=== PATIENT | female | born 1985 | race African-American/Black ===

== ENCOUNTER 2017-12-10 13:50 | Observation (INO) | payer MEDICAID ==
[~2017-12-10] VITALS: Ht 170.2 cm; Wt 129.3 kg
[~2017-12-10 13:50] MED LIST: ALBU2.5V13; ARIP15TA2; EMTR1TAB11; NORV1
[2017-12-10] MEDS ORDERED: TERBUTALINE SULFATE 1MG/ML VIAL SUBCUT PRN (14:30)
[2017-12-10] MEDS ORDERED: LACTATED RINGERS 1,000 ML IV SCH (14:30)
[2017-12-10] MEDS ORDERED: ACETAMINOPHEN 500MG TABLET PO NR (14:44)
[2017-12-10 15:14] LABS: CLARITY URINE CLEAR (CLEAR); COLOR URINE YELLOW (YELLOW); KETONES URINE NEGATIVE (NEGATIVE); LEUKOCYTE ESTERASE URINE NEGATIVE (NEGATIVE); NITRITE URINE NEGATIVE (NEGATIVE); OCCULT BLOOD URINE NEGATIVE (NEGATIVE); PROTEIN URINE NEGATIVE (NEGATIVE); SPECIFIC GRAVITY URINE 1.024 (1.005-1.030)
[2017-12-10] MEDS ORDERED: GABA-531 PO (15:15)
[2017-12-10] MEDS ORDERED: ACET-2178 PO (15:15)
[2017-12-10] MEDS ORDERED: RALT400T PO (15:15)
[2017-12-10] MEDS ORDERED: PNV1TABL76 MT (15:15)
== END 2017-12-10 16:00 | disposition home or self-care (01) ==
LOC: L&D 13:50
PROVIDERS: ADMIT Obstetrics & Gynecology; ATTEND Obstetrics & Gynecology
DX: O26.899 Other specified pregnancy related conditions, unspecified trimester (principal); R10.9 Unspecified abdominal pain; Z3A.00 Weeks of gestation of pregnancy not specified
CPT/HCPCS: 81003; 96360; 99281; G0378; J7120; 96361

== ENCOUNTER 2020-06-17 20:20 | Inpatient (IN) | payer MEDICAID ==
[~2020-06-17] VITALS: Ht 172.7 cm; Wt 84.2 kg
[~2020-06-17 20:20] MED LIST changes: -ARIP15TA2; +GABA-531 PO; -NORV1; +PNV1TABL76 MT; +RALT400T PO; +TOPUD PO
[2020-06-17] MEDS ORDERED: SODIUM CHLORIDE 0.9% 1,000 ML IV ONE (22:14)
[2020-06-17] MEDS ORDERED: LEVETIRACETAM 500MG PREMIX 100 ML IV ONE (22:15)
[2020-06-17 23:53] LABS: CLARITY URINE CLEAR (CLEAR); COLOR URINE YELLOW (YELLOW); KETONES URINE NEGATIVE (NEGATIVE); LEUKOCYTE ESTERASE URINE 1+ (NEGATIVE); NITRITE URINE NEGATIVE (NEGATIVE); OCCULT BLOOD URINE 3+ (NEGATIVE); PH URINE 6.5 (4.5-8.0); PROTEIN URINE TRACE (NEGATIVE); SPECIFIC GRAVITY URINE 1.026 (1.005-1.030)
[2020-06-18 00:07] LABS: *COCAINE SCREEN URINE NEGATIVE (NEGATIVE)
[2020-06-18 00:09] LABS: *BARBITURATES SCREEN URINE NEGATIVE (NEGATIVE); *BENZODIAZEPINES SCREEN URINE NEGATIVE (NEGATIVE); CANNABINOID URINE SCREEN NEGATIVE (NEGATIVE); METHADONE URINE SCREEN NEGATIVE (NEGATIVE); OPIATES URINE SCREEN NEGATIVE (NEGATIVE)
[2020-06-18 00:11] LABS: *AMPHETAMINES SCREEN URINE PRESUMTIVE POSITIVE (NEGATIVE); PHENCYCLIDINE URINE SCREEN PRESUMTIVE POSITIVE (NEGATIVE)
[2020-06-18 00:27] LABS: BASOPHILS % 0.8 % (0.0-2.0); EOSINOPHILS % 1.6 % (0.0-5.0); HEMATOCRIT. 37.7 % (36.0-48.0); HEMOGLOBIN. 12.9 g/dL (12.0-16.0); LYMPHOCYTES % 20.8 % (20.0-50.0); MEAN CORPUSCULAR HEMOGLOBIN 30.4 pg (28.0-32.0); MEAN CORPUSCULAR VOLUME 88.9 fL (81.0-99.0); MEAN PLATELET VOLUME 8.1 fl (7.4-10.4); NEUTROPHILS % 66.8 % (40.0-76.0); PLATELET 246 x1000/uL (130-400); RED BLOOD CELL COUNT 4.23 mill/uL (4.2-5.4); RED CELL DISTRIBUTION WIDTH 13.2 % (11.6-14.6)
[2020-06-18 00:33] LABS: CHLORIDE 107 mEq/L (98-107)
[2020-06-18 00:35] LABS: HCG SCREEN NEGATIVE
[2020-06-18 00:38] LABS: ETHANOL BLOOD < 10 mg/dL
[2020-06-18 00:49] LABS: PHENOBARBITAL < 2.1 ug/mL (15.0-40.0); VALPROIC ACID < 3.0 ug/mL (50-100)
[2020-06-18] MEDS ORDERED: LORAZEPAM 2MG/ML CPJ IV ONE (07:30)
[2020-06-18] MEDS ORDERED: OLANZAPINE 10 MG/VIAL IM ONE (07:30)
[2020-06-18 11:07] VITALS: BP 135/91
[2020-06-18 11:24] VITALS: BP 135/91
[2020-06-18] MEDS ORDERED: HALOPERIDOL LACTATE 5MG/ML VIAL IM PRN (12:30)
[2020-06-18] MEDS ORDERED: ACETAMINOPHEN 325MG TABLET PO PRN (12:30)
[2020-06-18] MEDS ORDERED: HYDRALAZINE 20MG/ML VIAL IV PRN (12:30)
[2020-06-18] MEDS ORDERED: ONDANSETRON HCL 4MG/2ML INJ IV PRN (12:30)
[2020-06-18] MEDS ORDERED: LORAZEPAM 2MG/ML CPJ IV PRN (12:30)
[2020-06-18] MEDS: LEVETIRACETAM 500MG PREMIX 100 ML IV SCH ×2 (13:20→23:33)
[2020-06-18] MEDS: DEXT 5%/0.45% NACL 1000ML 1,000 ML IV SCH ×2 (13:20→23:33)
[2020-06-18 16:00] VITALS: BP 100/55
[2020-06-18 16:05] LABS: BASOPHILS % 0.6 % (0.0-2.0); EOSINOPHILS % 1.2 % (0.0-5.0); HEMATOCRIT. 39.8 % (36.0-48.0); HEMOGLOBIN. 13.5 g/dL (12.0-16.0); LYMPHOCYTES % 15.3 % (20.0-50.0); MEAN CORPUSCULAR HEMOGLOBIN 30.1 pg (28.0-32.0); MEAN CORPUSCULAR VOLUME 89.2 fL (81.0-99.0); MEAN PLATELET VOLUME 8.4 fl (7.4-10.4); MONOCYTES % 7.3 % (2.0-8.0); NEUTROPHILS % 75.6 % (40.0-76.0); PLATELET 239 x1000/uL (130-400); RED BLOOD CELL COUNT 4.47 mill/uL (4.2-5.4); RED CELL DISTRIBUTION WIDTH 13.2 % (11.6-14.6)
[2020-06-18 16:11] LABS: CHLORIDE 108 mEq/L (98-107)
[2020-06-18 16:20] LABS: CREATINE KINASE 866 IU/L (26-192)
[2020-06-18 20:07] VITALS: BP 106/64
[2020-06-18] MEDS: HEPARIN 5000 UNITS/ML VIAL SUBCUT SCH (21:46)
[2020-06-18 23:58] VITALS: BP 118/75
[2020-06-19 04:45] VITALS: BP 112/62
[2020-06-19 06:12] LABS: CHLORIDE 109 mEq/L (98-107)
[2020-06-19 06:21] LABS: BASOPHILS % 0.7 % (0.0-2.0); EOSINOPHILS % 1.7 % (0.0-5.0); HEMOGLOBIN. 13.3 g/dL (12.0-16.0); MEAN CORPUSCULAR HEMOGLOBIN 30.2 pg (28.0-32.0); MEAN CORPUSCULAR VOLUME 88.5 fL (81.0-99.0); MEAN PLATELET VOLUME 8.5 fl (7.4-10.4); MONOCYTES % 11.1 % (2.0-8.0); NEUTROPHILS % 60.5 % (40.0-76.0); PLATELET 251 x1000/uL (130-400); RED CELL DISTRIBUTION WIDTH 13.1 % (11.6-14.6)
[2020-06-19 08:00] VITALS: BP 128/90
[2020-06-19] MEDS: HEPARIN 5000 UNITS/ML VIAL SUBCUT SCH ×2 (08:09→21:01)
[2020-06-19] MEDS: OLANZAPINE 5MG TABLET PO SCH (08:09)
[2020-06-19] MEDS: ASPIRIN 81MG EC TABLET PO SCH (08:09)
[2020-06-19] MEDS ORDERED: ASPIRIN 81MG EC TABLET PO SCH (09:00)
[2020-06-19] MEDS ORDERED: POTASSIUM CHLORIDE 20MEQ/PACKET PO NR ×2 (11:30→12:45)
[2020-06-19] MEDS: LEVETIRACETAM 500MG PREMIX 100 ML IV SCH (11:57)
[2020-06-19 12:00] VITALS: BP 122/80
[2020-06-19 13:06] LABS: CREATINE KINASE 637 IU/L (26-192)
[2020-06-19] MEDS ORDERED: MAGNESIUM 2 G PREMIX 50 ML IV NR (14:00)
[2020-06-19] MEDS: DEXT 5%/0.45% NACL 1000ML 1,000 ML IV SCH (14:10)
[2020-06-19 16:00] VITALS: BP 107/76
[2020-06-19 20:47] VITALS: BP 116/70
[2020-06-20] MEDS: LEVETIRACETAM 500MG PREMIX 100 ML IV SCH ×2 (00:34→13:25)
[2020-06-20 00:41] VITALS: BP 101/62
[2020-06-20] MEDS: DEXT 5%/0.45% NACL 1000ML 1,000 ML IV SCH ×2 (03:30→15:46)
[2020-06-20 04:00] VITALS: BP 108/77
[2020-06-20 08:00] VITALS: BP 97/57
[2020-06-20] MEDS: HEPARIN 5000 UNITS/ML VIAL SUBCUT SCH ×2 (08:36→21:18)
[2020-06-20] MEDS: ASPIRIN 81MG EC TABLET PO SCH (08:36)
[2020-06-20] MEDS: OLANZAPINE 5MG TABLET PO SCH (08:36)
[2020-06-20 10:06] LABS: % CD 3 POS. LYMPHOCYTES 86.6 % (57.5-86.2); % CD 4 POS. LYMPHOCYTES 59.3 % (30.8-58.5); ABSOLUTE CD 3 779 /uL (622-2402); ABSOLUTE CD 4 HELPER 534 /uL (359-1519); ABSOLUTE CD 8 SUPPRESSOR 279 /uL (109-897); ABSOLUTE EOSINOPHILS 0.1 x10E3/uL (0.0-0.4); ABSOLUTE LYMPHOCYTES 0.9 x10E3/uL (0.7-3.1); ABSOLUTE MONOCYTES 0.5 x10E3/uL (0.1-0.9); ABSOLUTE NEUTROPHILS 2.2 x10E3/uL (1.4-7.0); BASOPHILS 0 % (Not Estab.); CD4/CD8 RATIO 1.91 (0.92-3.72); HEMATOCRIT 39.3 % (34.0-46.6); HEMOGLOBIN 12.9 g/dL (11.1-15.9); IMMATURE GRANULOCYTES 0 % (Not Estab.); LYMPHOCYTES 25 % (Not Estab.); MEAN CORPUSCULAR HEMOGLOBIN 29.3 pg (26.6-33.0); MEAN CORPUSCULAR HGB CONC. 32.8 g/dL (31.5-35.7); MEAN CORPUSCULAR VOLUME 89 fL (79-97); MONOCYTES 12 % (Not Estab.); NEUTROPHILS 62 % (Not Estab.); PLATELETS 280 x10E3/uL (150-450); RBC 4.41 x10E6/uL (3.77-5.28); RED CELL DISTRIBUTION WIDTH 12.3 % (11.7-15.4); WBC 3.6 x10E3/uL (3.4-10.8)
[2020-06-20 12:34] VITALS: BP 104/68
[2020-06-20 12:47] LABS: BASOPHILS % 1.2 % (0.0-2.0); EOSINOPHILS % 2.5 % (0.0-5.0); HEMATOCRIT. 39.1 % (36.0-48.0); HEMOGLOBIN. 13.3 g/dL (12.0-16.0); LYMPHOCYTES % 28.9 % (20.0-50.0); MEAN CORPUSCULAR VOLUME 88.3 fL (81.0-99.0); MEAN PLATELET VOLUME 8.6 fl (7.4-10.4); MONOCYTES % 10.6 % (2.0-8.0); NEUTROPHILS % 56.8 % (40.0-76.0); PLATELET 273 x1000/uL (130-400); RED BLOOD CELL COUNT 4.43 mill/uL (4.2-5.4); RED CELL DISTRIBUTION WIDTH 12.9 % (11.6-14.6)
[2020-06-20 12:50] LABS: CHLORIDE 107 mEq/L (98-107)
[2020-06-20] MEDS ORDERED: KEPP500 MT (13:57)
[2020-06-20] MEDS ORDERED: OLAN5TAB26 PO (13:57)
[2020-06-20] MEDS ORDERED: PENICILLIN G BENZATHINE 2,400,000 UNITS/4ML SYR IM NR (16:00)
[2020-06-20 16:32] VITALS: BP 105/56
[2020-06-20 20:28] VITALS: BP 106/65
[2020-06-21] VITALS: BP 107/64
[2020-06-21] MEDS: LEVETIRACETAM 500MG PREMIX 100 ML IV SCH ×2 (00:31→14:04)
[2020-06-21 04:00] VITALS: BP 100/50
[2020-06-21 08:23] VITALS: BP 103/63
[2020-06-21 08:37] LABS: BASOPHILS % 0.7 % (0.0-2.0); HEMATOCRIT. 37.3 % (36.0-48.0); HEMOGLOBIN. 12.8 g/dL (12.0-16.0); LYMPHOCYTES % 29.3 % (20.0-50.0); MEAN CORPUSCULAR HEMOGLOBIN 30.4 pg (28.0-32.0); MEAN CORPUSCULAR VOLUME 88.7 fL (81.0-99.0); MEAN PLATELET VOLUME 8.6 fl (7.4-10.4); MONOCYTES % 13.6 % (2.0-8.0); NEUTROPHILS % 54.4 % (40.0-76.0); PLATELET 277 x1000/uL (130-400); RED CELL DISTRIBUTION WIDTH 12.8 % (11.6-14.6)
[2020-06-21 08:41] LABS: CHLORIDE 106 mEq/L (98-107)
[2020-06-21] MEDS: ASPIRIN 81MG EC TABLET PO SCH (09:22)
[2020-06-21] MEDS: HEPARIN 5000 UNITS/ML VIAL SUBCUT SCH (09:25)
[2020-06-21 11:51] VITALS: BP_SYST 110; BP_SYST 166; BP_DIAS 76; BP_DIAS 78
[2020-06-21] MEDS ORDERED: MAGNESIUM 2 G PREMIX 50 ML IV NR (13:30)
[2020-06-21 15:53] VITALS: BP 111/65
[2020-06-21 18:01] VITALS: BP 111/65
== END 2020-06-21 18:34 | disposition home or self-care (01) | DRG 893 ==
LOC: ER 20:20 → 6WST 06-18 01:22 → ENRESERV 06-18 08:49 → ER 06-18 10:39
PROVIDERS: ADMIT Internal Medicine; ATTEND Internal Medicine
PROC: 4A00X4Z Measurement of Central Nervous Electrical Activity, External Approach (ICD-10-PCS; principal; 2020-06-21)
DX: G40.909 Epilepsy, unspecified, not intractable, without status epilepticus (principal); E83.42 Hypomagnesemia; E86.0 Dehydration; E87.6 Hypokalemia; F31.9 Bipolar disorder, unspecified; M62.82 Rhabdomyolysis; I10 Essential (primary) hypertension; F16.129 Hallucinogen abuse with intoxication, unspecified; B20 Human immunodeficiency virus [HIV] disease; R31.9 Hematuria, unspecified; S62.607A Fracture of unspecified phalanx of left little finger, initial encounter for closed fracture; X58.XXXA Exposure to other specified factors, initial encounter; F15.129 Other stimulant abuse with intoxication, unspecified; Z59.0 Homelessness; Z88.8 Allergy status to other drugs, medicaments and biological substances; Z79.899 Other long term (current) drug therapy; Z79.82 Long term (current) use of aspirin; Y93.89 Activity, other specified; Y92.89 Other specified places as the place of occurrence of the external cause; Y99.8 Other external cause status
CPT/HCPCS: 36415; 71045; 73120; 80048; 80053; 80165; 80184; 80185; 80305; 80320; 81003; 82550; 83735; 84484; 84703; 85025; 86359; 86360; 86592; 86593; 86780; 93005; 93306; 95816; 96365; 97116; 97162; 97166; 99285; J0561; J1644; J1953; J2060; J3475; J3490; J7030; G0480